=== PATIENT | female | born 1970 | race Caucasian/White ===

== ENCOUNTER 2017-03-12 14:00 | Emergency (ER) | payer SELFPAY ==
[2017-03-12 14:07] VITALS: BMI 37.5
[2017-03-12 14:16] VITALS: TEMP 98.2; O2SAT 99
--- NOTE | 2017-03-12 14:32 | ED PDOC ---
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 ) - History of Present Illness Narrative History of Present Illness (Text): 03/12/17 14:09 A 46 year old Eloise speaking female, whose past medical history includes hypertension and season allergies, presents to the emergency department complaining of flu like symptoms for the past week. Patient symptoms include a productive cough, nasal congestion, runny nose, sneezing, sore thorat, subjective fevers, chills and generalized body aches. Patient notes yesterday evening she started to feel short of breath and therefore she wanted to come to the emergency department to get evaluated. Patient notes shortness of breath is worse when laying down flat and chest discomfort is presents with coughing a lot. Patient denies any abdominal pain, nausea, vomiting, or other complaints at this time. PMD: None Time/Duration: 1 week Symptom Onset: Gradual Symptom Course: Worsening Quality: Other Activities at Onset: Rest Context: Home Past Medical History - Provider Review Nursing Documentation Reviewed: Yes - Cardiac Hx Hypertension: Yes - Psychiatric Hx Substance Use: No - Surgical History Hx Hysterectomy: Yes Family/Social History - Physician Review Nursing Documentation Reviewed: Yes Family/Social History: Unknown Family HX Smoking Status: Never Smoked Hx Alcohol Use: No Hx Substance Use: No Allergies/Home Meds Allergies/Adverse Reactions: Allergies No Known Allergies Allergy (Verified 03/12/17 14:07) Review of Systems - Physician Review All systems were reviewed & negative as marked: Yes - Review of Systems Constitutional: Fevers, Other (chills) ENT: Rhinorrhea, Sinus Congestion Respiratory: SOB, Cough, Sputum Cardiovascular: Chest Pain Gastrointestinal: absent: Abdominal Pain, Diarrhea, Nausea, Vomiting Musculoskeletal: Myalgias Physical Exam Vital Signs Reviewed: Yes Vital Signs Temp Pulse Resp BP Pulse Ox 03/12/17 17:46 57 L 18 147/72 99 03/12/17 15:52 61 18 152/79 H 99 03/12/17 14:00 98.2 F 60 16 155/84 H 99 Temperature: Afebrile Blood Pressure: Hypertensive Pulse: Regular Respiratory Rate: Normal Appearance: Positive for: Well-Appearing, Non-Toxic, Comfortable Pain Distress: None Mental Status: Positive for: Alert and Oriented X 3 - Systems Exam Head: Present: Atraumatic, Normocephalic Pupils: Present: PERRL Extroacular Muscles: Present: EOMI Conjunctiva: Present: Normal Mouth: Present: Moist Mucous Membranes Nose (Internal): Present: Other (congested) Neck: Present: Normal Range of Motion Respiratory/Chest: Present: Clear to Auscultation, Good Air Exchange, Other ( coughing). No: Respiratory Distress, Accessory Muscle Use Cardiovascular: Present: Regular Rate and Rhythm, Normal S1, S2. No: Murmurs Abdomen: Present: Normal Bowel Sounds. No: Tenderness, Distention, Peritoneal Signs Back: Present: Normal Inspection Upper Extremity: Present: Normal Inspection. No: Cyanosis, Edema Lower Extremity: Present: Normal Inspection. No: Edema Neurological: Present: GCS=15, CN II-XII Intact, Speech Normal Skin: Present: Warm, Dry, Normal Color. No: Rashes Psychiatric: Present: Alert, Oriented x 3, Normal Insight, Normal Concentration Medical Decision Making ED Course and Treatment: 03/12/17 14:09 Impression: A 46 year old female with flu like symptoms. Differential Diagnosis include but are not limited to: Influenza vs. Bronchitis vs. Pneumonia Plan: -- Chest X-ray -- Labs -- Influenza -- Reassess and disposition Progress Notes: Patient felt better after treatment. No shortness of breathe. She is coughing but does feel better. She has a negative CXR. Labs are normal with normal WBC and negative influenza. She is able to tolerate po fluids. She will be prescribed an albuteral pump and cough medication. She was told to make sure she follows up with her PMD. Her translated as per her request. She undertands the importance of follow up and to return to the ED if symptoms worsen or any other concern. - Lab Interpretations Lab Results: 03/12/17 14:50 03/12/17 14:50 Lab Results 03/12/17 14:50: Influenza Typ A,B (EIA) Negative for flu a/b 03/12/17 14:50: Sodium 137, Potassium 4.8, Chloride 107, Carbon Dioxide 23, Anion Gap 12, BUN 10, Creatinine 0.8, Est GFR ( Amer) > 60, Est GFR (Non- Af Amer) > 60, Random Glucose 93, Calcium 9.4, Magnesium 1.9 03/12/17 14:50: WBC 7.8, RBC 4.34, Hgb 13.0, Hct 37.9, MCV 87.3, MCH 30.0, MCHC 34.3, RDW 13.0, Plt Count 261, MPV 10.3, Gran % 54.9, Lymph % (Auto) 28.8, [place] % (Auto) 10.1 H, Eos % (Auto) 5.9 H, Baso % (Auto) 0.3, Gran # 4.30, Lymph # 2.3 , [place] # 0.8 H, Eos # 0.5, Baso # 0.02 I have reviewed the lab results: Yes - RAD Interpretation Radiology Orders: 03/12/17 14:15 CHEST TWO VIEWS (PA/LAT) [RAD] Stat - Scribe Statement Sulma Gregory Provider Scribe Attestation: All medical record entries made by the Scribe were at my direction and personally dictated by me. I have reviewed the chart and agree that the record accurately reflects my personal performance of the history, physical exam, medical decision making, and the department course for this patient. I have also personally directed, reviewed, and agree with the discharge instructions and disposition. Disposition/Present on Arrival - Present on Arrival Any Indicators Present on Arrival: No History of DVT/PE: No History of Uncontrolled Diabetes: No Urinary Catheter: No History of Decub. Ulcer: No History Surgical Site Infection Following: None - Disposition Have Diagnosis and Disposition been Completed?: Yes Diagnosis: Bronchitis, Upper respiratory infection Disposition: HOME/ ROUTINE Disposition Time: 17:40 Patient Plan: Discharge Condition: IMPROVED Discharge Instructions (ExitCare): Acute Bronchitis (ED) Additional Instructions: Mr Rodriguez, thank you for letting us take care of you today. Your provider was Dr. James. You were treated for Bronchitis. The emergency medical care you received today was directed at your acute symptoms. If you were prescribed any medication, please fill it and take as directed. It may take several days for your symptoms to resolve. Return to the Emergency Department if your symptoms worsen, do not improve, or if you have any other problems. Please contact your doctor or call one of the physicians/clinics you have been referred to that are listed on the Patient Visit Information form that is included in your discharge packet. Bring any paperwork you were given at discharge with you along with any medications you are taking to your follow up visit. Our treatment cannot replace ongoing medical care by a primary care provider (PCP) outside of the emergency department. Thank you for allowing the [facility] team to be part of your care today. If you had an X-Ray or CT scan: A Radiologist will review the ED reading if any change in treatment is needed we will contact you. If you had a blood, urine, or wound culture: It will take several days for the results, if any change in treatment is needed we will contact you. If you had an STI test: It will take 48 hours for the results. Please call after 1 week if you have not heard back. Prescriptions: Albuterol HFA [Ventolin HFA 90 mcg/actuation (8 g)] 2 puff IH Q4 #1 puff guaiFENesin [guaifENESIN] 200 mg PO Q8 PRN #1 udc PRN Reason: Cough Referrals: [facility] [Outside] - Follow up with primary Forms: [employer] (Persian), WORK NOTE
[2017-03-12 15:23] LABS: ADD MANUAL DIFF? NO
[2017-03-12 15:36] LABS: BASO # 0.02 K/mm3 (0.0-2.0); BASO % 0.3 % (0.0-3.0); EOS # 0.5 (0.0-0.7); EOS % 5.9 % (1.5-5.0); GRAN % 54.9 % (50.0-68.0); HEMATOCRIT 37.9 % (36.0-48.0); LYMPH # 2.3 (1.2-3.4); LYMPH % 28.8 % (22.0-35.0); MEAN CELL VOLUME 87.3 fL (80.0-105.0); MEAN CORPUSCULAR HGB CONC 34.3 g/dl (31.0-37.0); MEAN PLATELET VOLUME 10.3 fl (7.0-11.0); MONO # 0.8 (0.1-0.6); MONO % 10.1 % (1.0-6.0); PLATELET COUNT 261 10^3/uL (120.0-450.0); WHITE BLOOD COUNT 7.8 10^3/ul (4.5-11.0)
[2017-03-12 15:39] LABS: BLOOD UREA NITROGEN 10 mg/dL (7-21); CALCIUM 9.4 mg/dL (8.4-10.5); CARBON DIOXIDE 23 mmol/L (21-33); CHLORIDE 107 mmol/L (98-107); GFR AFRICAN-AMERICAN > 60; GLUCOSE,RANDOM 93 mg/dL (70-110); MAGNESIUM 1.9 mg/dL (1.7-2.2); POTASSIUM 4.8 mmol/L (3.6-5.0); SODIUM 137 mmol/L (132-148)
[2017-03-12 15:52] VITALS: RESP 18
--- NOTE | 2017-03-12 16:20 | RAD ---
HISTORY: cough r/o pna COMPARISON: No prior. TECHNIQUE: Chest PA and lateral FINDINGS: LUNGS: No active pulmonary disease. PLEURA: No significant pleural effusion identified. No pneumothorax apparent. CARDIOVASCULAR: Normal. OSSEOUS STRUCTURES: No significant abnormalities. VISUALIZED UPPER ABDOMEN: Normal. OTHER FINDINGS: None. IMPRESSION: No active disease.
[2017-03-12 17:46] VITALS: BP 147/72; PULSE 57
== END 2017-03-12 17:46 | disposition home or self-care (01) ==
LOC: ED 14:00
DX: J20.9 Acute bronchitis, unspecified (principal); J06.9 Acute upper respiratory infection, unspecified

== ENCOUNTER 2017-04-19 09:41 | Emergency (ER) | payer SELFPAY ==
[2017-04-19 09:55] VITALS: TEMP 99.8; BMI 40.7
[2017-04-19] MEDS ORDERED: Sodium Chloride 0.9% 1,000 ML IV STA (10:14)
[2017-04-19 10:39] LABS: BASO # 0.02 K/mm3 (0.0-2.0); BASO % 0.2 % (0.0-3.0); EOS # 0.3 (0.0-0.7); EOS % 2.3 % (1.5-5.0); GRAN # 7.84 (1.4-6.5); GRAN % 70.7 % (50.0-68.0); MEAN CELL VOLUME 87.9 fL (80.0-105.0); MEAN CORPUSCULAR HEMOGLOBIN 29.7 pg (25.0-35.0); MEAN CORPUSCULAR HGB CONC 33.8 g/dl (31.0-37.0); MEAN PLATELET VOLUME 10.1 fl (7.0-11.0); MONO % 8.8 % (1.0-6.0); PLATELET COUNT 240 10^3/uL (120.0-450.0); RBC 4.38 10^6/uL (3.5-6.1); RED CELL DISTRIBUTION WIDTH 12.7 % (11.5-14.5); WHITE BLOOD COUNT 11.1 10^3/ul (4.5-11.0)
[2017-04-19 10:44] LABS: ALB/GLOB RATIO 1.1 (1.1-1.8); ALBUMIN 4.1 g/dL (3.0-4.8); ALT/SGPT 52 U/L (7-56); AST/SGOT 30 U/L (15-39); BLOOD UREA NITROGEN 9 mg/dL (7-21); CALCIUM 9.3 mg/dL (8.4-10.5); GFR AFRICAN-AMERICAN > 60; GFR NON-AFRICAN AMERICAN > 60; LIPASE 53 U/L (23-300)
[2017-04-19 10:57] LABS: URINE BILIRUBIN NEGATIVE (NEGATIVE); URINE BLOOD TRACE-LYSED (NEGATIVE); URINE GLUCOSE (UA) NEGATIVE (NEGATIVE); URINE LEUKOCYTE ESTERASE NEGATIVE Leu/uL (NEGATIVE); URINE NITRATE NEGATIVE (NEGATIVE); URINE PROTEIN NEGATIVE mg/dL (<30 mg/dL); URINE UROBILINOGEN 0.2 E.U./dL (<1 E.U./dL)
[2017-04-19 11:01] LABS: URINE APPEARANCE CLEAR (CLEAR); URINE COLOR LIGHT YELLOW (YELLOW)
[2017-04-19 11:21] LABS: URINE EPITHELIAL CELLS 0 - 2 /hpf (0-5); URINE RBC 0 - 2 /hpf (0-2); URINE WBC NEGATIVE /hpf (0-6)
[2017-04-19 11:22] LABS: URINE BACTERIA FEW (NEG)
--- NOTE | 2017-04-19 11:22 | ED PDOC ---
Arrival/HPI - General Chief Complaint: Abdominal Pain Time Seen by Provider: 04/19/17 10:13 Historian: Patient - History of Present Illness Narrative History of Present Illness (Text): 04/19/17 10:13 Dana Rodriguez is a 46 year old female, whose past medical history includes hypertension and season allergies, who presents to the emergency department complaining of lower abdominal pain and left ear pain for a few days. Patient states that she has hed her current back pain for a few days but it has been chronic for some time. Patient denies any nausea, vomiting, diarrhea, fever, dysuria, or any other complaint at this time. Time/Duration: < week Symptom Onset: Gradual Symptom Course: Unchanged Severity Level: Mild Activities at Onset: Rest Context: Home Past Medical History - Provider Review Nursing Documentation Reviewed: Yes - Infectious Disease Hx of Infectious Diseases: None - Cardiac Hx Hypertension: Yes - Psychiatric Hx Substance Use: No - Surgical History Hx Hysterectomy: Yes - Anesthesia Hx Anesthesia: Yes Hx Anesthesia Reactions: No Family/Social History - Physician Review Nursing Documentation Reviewed: Yes Family/Social History: No Known Family HX Smoking Status: Never Smoked Hx Alcohol Use: No Hx Substance Use: No Allergies/Home Meds Allergies/Adverse Reactions: Allergies No Known Allergies Allergy (Verified 03/12/17 14:07) Home Medications: Home Meds Medication Instructions Recorded Confirmed Atenolol [Tenormin] 100 mg PO DAILY 04/19/17 04/19/17 Lisinopril [Zestril] 10 mg PO DAILY 04/19/17 04/19/17 Review of Systems - Physician Review All systems were reviewed & negative as marked: Yes - Review of Systems Constitutional: absent: Fevers, Night Sweats Eyes: absent: Vision Changes ENT: Other (Left ear pain). absent: Hearing Changes Respiratory: absent: SOB, Cough Cardiovascular: absent: Chest Pain Gastrointestinal: Abdominal Pain (Lower abdominal pain). absent: Diarrhea, Nausea, Vomiting Genitourinary Female: absent: Dysuria, Urine Output Changes Musculoskeletal: absent: Arthralgias Skin: absent: Rash Neurological: absent: Headache Endocrine: absent: Diaphoresis Hemo/Lymphatic: absent: Adenopathy Psychiatric: absent: Anxiety Physical Exam Vital Signs Reviewed: Yes Vital Signs Temp Pulse Resp BP Pulse Ox 04/19/17 15:00 62 16 137/77 98 04/19/17 12:03 65 16 133/77 100 04/19/17 09:51 99.8 F H 78 18 125/83 99 Temperature: Febrile Blood Pressure: Normal Pulse: Regular Respiratory Rate: Normal Appearance: Positive for: Well-Appearing, Non-Toxic, Comfortable Pain Distress: None Mental Status: Positive for: Alert and Oriented X 3 - Systems Exam Head: Present: Atraumatic, Normocephalic Pupils: Present: PERRL Extroacular Muscles: Present: EOMI Conjunctiva: Present: Normal Mouth: Present: Moist Mucous Membranes Neck: Present: Normal Range of Motion Respiratory/Chest: Present: Clear to Auscultation, Good Air Exchange. No: Respiratory Distress, Accessory Muscle Use Cardiovascular: Present: Regular Rate and Rhythm, Normal S1, S2. No: Murmurs Abdomen: Present: Tenderness (diffuse lower quadrant tenderness; left greater than right) Back: Present: Other (mild lower back tenderness bilaterally) Upper Extremity: Present: Normal Inspection. No: Cyanosis, Edema Lower Extremity: Present: Normal Inspection. No: Edema Neurological: Present: GCS=15, CN II-XII Intact, Speech Normal Skin: Present: Warm, Dry, Normal Color. No: Rashes Psychiatric: Present: Alert, Oriented x 3, Normal Insight, Normal Concentration Medical Decision Making ED Course and Treatment: 04/19/17 10:13 Impression: 46 year old female complaining of lower abdominal pain and left ear pain for a few days. Differential Diagnosis included but are not limited to: Diverticulitis vs. Diverticulosis Plan: -- Abdomen and Pelvis CT -- Urine Culture -- Pepcid, Zofran, and IV Fluids -- Reassess and disposition Prior Visits: Notes and results from previous visits were reviewed. Patient last seen in the ED on 03/12/17 for flu like symptoms for a week. Patient was discharged home. Progress Notes: 04/19/17 10:[address] Montelongo, states that he has been treating patient for abdominal pain and requests CT of abdomen. - Lab Interpretations Lab Results: 04/19/17 10:30 04/19/17 10:30 Lab Results 04/19/17 10:49: Urine Color Light yellow, Urine Appearance Clear, Urine pH 6.0, Ur Specific Hardy 1.015, Urine Protein Negative, Urine Glucose (UA) Negative, Urine Ketones Negative, Urine Blood Trace-lysed H, Urine Nitrate Negative, Urine Bilirubin Negative, Urine Urobilinogen 0.2, Ur Leukocyte Esterase Negative , Urine RBC 0 - 2, Urine WBC Negative, Ur Epithelial Cells 0 - 2, Urine Bacteria Few 04/19/17 10:30: Sodium 136, Potassium 3.8, Chloride 103, Carbon Dioxide 21, Anion Gap 16, BUN 9, Creatinine 0.8, Est GFR ( Amer) > 60, Est GFR (Non- Af Amer) > 60, Random Glucose 130 H, Calcium 9.3, Total Bilirubin 0.7, AST 30, ALT 52, Alkaline Phosphatase 73, Total Protein 7.8, Albumin 4.1, Globulin 3.7, Albumin/Globulin Ratio 1.1, Lipase 53 04/19/17 10:30: WBC 11.1 H D, RBC 4.38, Hgb 13.0, Hct 38.5, MCV 87.9, MCH 29.7, MCHC 33.8, RDW 12.7, Plt Count 240, MPV 10.1, Gran % 70.7 H, Lymph % (Auto) 18.0 L, [place] % (Auto) 8.8 H, Eos % (Auto) 2.3, Baso % (Auto) 0.2, Gran # 7.84 H , Lymph # 2.0, [place] # 1.0 H, Eos # 0.3, Baso # 0.02 I have reviewed the lab results: Yes - RAD Interpretation Radiology Orders: 04/19/17 11:29 ABDOMEN & PELVIS [ABD PELVIS PO & IV CONTRAST] [CT] Stat - Medication Orders Current Medication Orders: Discontinued Medications Amoxicillin (Amoxil 500 Mg Cap) 500 mg PO STAT STA PRN Reason: Protocol Stop: 04/19/17 15:15 Last Admin: 04/19/17 15:28 Dose: 500 mg Famotidine (Pepcid) 20 mg IVP STAT STA Stop: 04/19/17 10:15 Last Admin: 04/19/17 10:53 Dose: Not Given Non-Admin Reason: Patient Refused Sodium Chloride (Sodium Chloride 0.9%) 1,000 mls @ 1,000 mls/hr IV .Q1H STA Stop: 04/19/17 11:13 Last Admin: 04/19/17 10:53 Dose: 1,000 mls/hr Ibuprofen (Motrin Tab) 600 mg PO STAT STA Stop: 04/19/17 15:15 Last Admin: 04/19/17 15:27 Dose: 600 mg Iohexol (Omnipaque 240 (50 Ml)) Confirm Administered Dose 50 ml .ROUTE .STK-MED ONE Stop: 04/19/17 11:53 Iohexol (Omnipaque 350 100 Ml) Confirm Administered Dose 350 mg .ROUTE .STK-MED ONE Stop: 04/19/17 11:53 Ondansetron HCl (Zofran Inj) 4 mg IVP STAT STA Stop: 04/19/17 10:15 Last Admin: 04/19/17 10:53 Dose: Not Given Non-Admin Reason: Patient Refused Disposition/Present on Arrival - Present on Arrival Any Indicators Present on Arrival: No History of DVT/PE: No History of Uncontrolled Diabetes: No Urinary Catheter: No History of Decub. Ulcer: No History Surgical Site Infection Following: None - Disposition Have Diagnosis and Disposition been Completed?: Yes Diagnosis: Abdominal pain, Otitis externa Disposition: HOME/ ROUTINE Disposition Time: 14:50 Condition: GOOD Discharge Instructions (ExitCare): Otitis Externa (ED), Acute Abdominal Pain ( ED) Additional Instructions: Thank you for letting us take care of you today. Your provider was Dr. Justin. You were treated for abdominal pain and an ear infection. The emergency medical care you received today was directed at your acute symptoms. If you were prescribed any medication, please fill it and take as directed. It may take several days for your symptoms to resolve. Return to the Emergency Department if your symptoms worsen, do not improve, or if you have any other problems. Please contact your doctor or call one of the physicians/clinics you have been referred to that are listed on the Patient Visit Information form that is included in your discharge packet. Bring any paperwork you were given at discharge with you along with any medications you are taking to your follow up visit. Our treatment cannot replace ongoing medical care by a primary care provider (PCP) outside of the emergency department. Thank you for allowing the [facility] team to be part of your care today. Follow up with Dr. Montelongo in 3-4 days for re-evaluation. Prescriptions: Amoxicillin [Amoxil 500 mg Cap] 500 mg PO TID #21 cap Ibuprofen [Motrin] 600 mg PO Q6 PRN #20 tab PRN Reason: Pain, Moderate (4-7) Referrals: Jesse Montelongo MD [Family Provider] - Follow up with primary
[2017-04-19] MEDS ORDERED: Iohexol 350 MG/100 ML VIAL ONE (11:52)
[2017-04-19] MEDS ORDERED: Iohexol 240 (50 ml) ONE (11:52)
[2017-04-19 12:03] VITALS: RESP 16
--- NOTE | 2017-04-19 14:55 | CT ---
PROCEDURE: CT Abdomen and Pelvis with contrast HISTORY: lower abdominal pain (LLQ>RLQ) COMPARISON: None. TECHNIQUE: Contrast dose: 100 mL Omnipaque 350 Radiation dose: Total exam DLP = 1214.64 mGy-cm. This CT exam was performed using one or more of the following dose reduction techniques: Automated exposure control, adjustment of the mA and/or kV according to patient size, and/or use of iterative reconstruction technique. FINDINGS: LOWER THORAX: Unremarkable. LIVER: Normal size and contour. Diffusely diminished attenuation consistent with fatty infiltration. No mass. No biliary ductal dilatation. GALLBLADDER AND BILE DUCTS: Status post cholecystectomy. Minimal dilatation of common bile duct consistent with prior cholecystectomy. PANCREAS: Unremarkable. No gross lesion or ductal dilatation. SPLEEN: Unremarkable. ADRENALS: Unremarkable. No mass. KIDNEYS AND URETERS: Unremarkable. No hydronephrosis. No solid mass. VASCULATURE: Unremarkable. No aortic aneurysm. BOWEL: Minimal sigmoid diverticulosis. No evidence of diverticulitis. No bowel obstruction. No other abnormal bowel loops. APPENDIX: Normal retrocecal appendix identified. PERITONEUM: Unremarkable. No free fluid. No free air. LYMPH NODES: Unremarkable. No enlarged lymph nodes. BLADDER: Unremarkable. REPRODUCTIVE: Status post hysterectomy. BONES: No acute fracture. OTHER FINDINGS: None. IMPRESSION: No acute abnormality. Fatty liver. Cholecystectomy. Mild sigmoid diverticulosis. No evidence of acute diverticulitis.
[2017-04-19 15:33] VITALS: BP 137/77; PULSE 62; O2SAT 98
== END 2017-04-19 15:30 | disposition home or self-care (01) ==
LOC: ED 09:41
DX: R10.9 Unspecified abdominal pain (principal); H60.92 Unspecified otitis externa, left ear; I10 Essential (primary) hypertension
CPT/HCPCS: 74177; 80053; 81001; 83690; 85025; 87086; 96360; 96361; 99284; J7040; Q9966; Q9967